=== PATIENT | male | born 1975 | race African-American/Black ===

== ENCOUNTER 2019-04-06 11:43 | Inpatient (IN) | payer MEDICAID, OTHER ==
[~2019-04-06] VITALS: Ht 180.3 cm; Wt 74.8 kg
[2019-04-06] MEDS ORDERED: ONDANSETRON HCL 4MG/2ML INJ IV STA (12:08)
[2019-04-06] MEDS ORDERED: SODIUM CHLORIDE 0.9% 1,000 ML IV ONE (12:08)
[2019-04-06] MEDS ORDERED: KETOROLAC 30MG/ML VIAL IV STA (12:08)
[2019-04-06 13:17] LABS: CLARITY URINE CLEAR (CLEAR); COLOR URINE DARK YELLOW (YELLOW); KETONES URINE 2+ (NEGATIVE); LEUKOCYTE ESTERASE URINE TRACE (NEGATIVE); NITRITE URINE NEGATIVE (NEGATIVE); OCCULT BLOOD URINE TRACE (NEGATIVE); PH URINE 6.5 (4.5-8.0); PROTEIN URINE 2+ (NEGATIVE); SPECIFIC GRAVITY URINE 1.033 (1.005-1.030)
[2019-04-06 13:21] LABS: BASOPHILS % 0.1 % (0.0-2.0); EOSINOPHILS % 0.1 % (0.0-5.0); HEMOGLOBIN. 16.4 g/dL (14.0-18.0); LYMPHOCYTES % 10.6 % (20.0-50.0); MEAN CORPUSCULAR HEMOGLOBIN 30.8 pg (28.0-32.0); MEAN CORPUSCULAR VOLUME 89.9 fL (80.0-94.0); MEAN PLATELET VOLUME 9.3 fl (7.4-10.4); MONOCYTES % 9.5 % (2.0-8.0); NEUTROPHILS % 79.7 % (40.0-76.0); PLATELET 269 x1000/uL (130-400); RED BLOOD CELL COUNT 5.34 mill/uL (4.7-6.1); RED CELL DISTRIBUTION WIDTH 13.9 % (11.6-14.6)
[2019-04-06 13:27] LABS: CHLORIDE 88 mEq/L (98-107)
[2019-04-06 13:48] LABS: INR 1.1; PROTHROMBIN TIME 11.6 sec (9.6-11.0)
[2019-04-06] MEDS ORDERED: KCL 20MEQ/100ML PREMIX 100 ML IV ONE (14:00)
[2019-04-06] MEDS ORDERED: HYDRALAZINE 20MG/ML VIAL IV ONE (14:30)
[2019-04-06 16:00] VITALS: BP 109/90
[2019-04-06] MEDS ORDERED: POTASSIUM CHLORIDE 20MEQ TABLET SR PO NR ×2 (16:00→23:12)
[2019-04-06] MEDS ORDERED: CLONIDINE 0.1MG TABLET PO PRN (16:00)
[2019-04-06] MEDS ORDERED: ACETAMINOPHEN 325MG TABLET PO PRN (16:00)
[2019-04-06] MEDS ORDERED: ONDANSETRON HCL 4MG/2ML INJ IV PRN (16:00)
[2019-04-06] MEDS ORDERED: KETOROLAC 15MG/ML VIAL IV PRN (16:00)
[2019-04-06 17:00] VITALS: BP 109/90
[2019-04-06] MEDS ORDERED: POTASSIUM CHLORIDE INJ 40 MEQ in DEXT 5% WATER 250 ML IV SCH (18:00)
[2019-04-06] MEDS ORDERED: FOLIC ACID 1 MG, THIAMINE HCL 100 MG, MVI, ADULT NO.1 10 ML in DEXTROSE 5% WATER 1,000 ML IV SCH ×4 (18:00)
[2019-04-06 20:00] VITALS: BP 145/83
[2019-04-06] MEDS: CHLORDIAZEPOXIDE 25MG CAPSULE PO SCH (22:08)
[2019-04-06] MEDS ORDERED: POTASSIUM CHLORIDE 20MEQ TABLET SR PO ONE (23:15)
[2019-04-07] VITALS: BP 122/83
[2019-04-07] MEDS ORDERED: LORAZEPAM 0.5MG TABLET PO PRN (01:45)
[2019-04-07] MEDS ORDERED: POTASSIUM CHLORIDE 20MEQ TABLET SR PO SCH ×2 (02:00→05:00)
[2019-04-07 04:00] VITALS: BP 118/87
[2019-04-07] MEDS ORDERED: HYDRALAZINE HCL 50MG TABLET PO SCH (06:00)
[2019-04-07] MEDS: CHLORDIAZEPOXIDE 25MG CAPSULE PO SCH ×2 (06:31→14:05)
[2019-04-07 08:00] VITALS: BP 130/88
[2019-04-07] MEDS ORDERED: METOPROLOL TARTRATE 50MG TABLET PO SCH (09:00)
[2019-04-07] MEDS ORDERED: LEVETIRACETAM 500MG TABLET PO SCH (09:00)
[2019-04-07] MEDS ORDERED: ASPIRIN 81MG TABLET PO SCH (09:00)
[2019-04-07] MEDS ORDERED: ENOXAPARIN 40MG/0.4ML SYR SUBCUT SCH (09:00)
[2019-04-07 09:32] LABS: BASOPHILS % 0.3 % (0.0-2.0); EOSINOPHILS % 0.8 % (0.0-5.0); HEMATOCRIT. 41.1 % (42.0-52.0); HEMOGLOBIN. 13.8 g/dL (14.0-18.0); MEAN CORPUSCULAR HEMOGLOBIN 30.7 pg (28.0-32.0); MEAN CORPUSCULAR VOLUME 91.5 fL (80.0-94.0); MEAN PLATELET VOLUME 8.9 fl (7.4-10.4); MONOCYTES % 10.9 % (2.0-8.0); PLATELET 212 x1000/uL (130-400); RED BLOOD CELL COUNT 4.49 mill/uL (4.7-6.1)
[2019-04-07 09:51] LABS: CHLORIDE 98 mEq/L (98-107)
[2019-04-07 12:00] VITALS: BP 133/99
[2019-04-07 13:49] VITALS: BP 130/88
[2019-04-07] MEDS ORDERED: FAMOTIDINE 20MG TABLET PO SCH (21:00)
== END 2019-04-07 14:51 | disposition home or self-care (01) | DRG 775 ==
LOC: ER 11:43 → 8WST 14:17 → EDBEDREQTM 14:30 → ENRESERV 14:37
PROVIDERS: ADMIT Internal Medicine; ATTEND Internal Medicine
DX: F10.239 Alcohol dependence with withdrawal, unspecified (principal); E87.8 Other disorders of electrolyte and fluid balance, not elsewhere classified; E87.6 Hypokalemia; E87.1 Hypo-osmolality and hyponatremia; Y90.9 Presence of alcohol in blood, level not specified; Z71.41 Alcohol abuse counseling and surveillance of alcoholic
CPT/HCPCS: 36415; 71045; 80048; 83036; 83735; 93005; 93306; 96361; 96365; 96375; 99291; J1650; J1885; J2405; J3411; J3480; J3490; J7030; J7040; J7060; J7070

== ENCOUNTER 2019-05-15 13:26 | Emergency (ER) | payer MEDICAID ==
[~2019-05-15] VITALS: Ht 180.3 cm; Wt 80.0 kg
[2019-05-15] MEDS ORDERED: IBUPROFEN 600MG TABLET PO ONE (14:45)
[2019-05-15 15:51] VITALS: BP 148/89
== END 2019-05-15 15:52 | disposition home or self-care (01) ==
LOC: ER 13:26
DX: S60.221A Contusion of right hand, initial encounter (principal); V19.3XXA Pedal cyclist (driver) (passenger) injured in unspecified nontraffic accident, initial encounter; Y93.89 Activity, other specified; Y92.89 Other specified places as the place of occurrence of the external cause
CPT/HCPCS: 73130; 99283